=== PATIENT | female | born 1975 | race Caucasian/White ===

== ENCOUNTER 2017-10-27 14:24 | Emergency (ER) | payer OTHER ==
[~2017-10-27] VITALS: Ht 165.1 cm; Wt 72.6 kg
[2017-10-27 14:34] VITALS: Ht 165.1 cm; Wt 72.6 kg
[2017-10-27 15:01] LABS: BASOPHIL % 0.1 % (0-2); PLATELET COUNT 147 x10^3mcL (130-400)
[2017-10-27 15:11] LABS: CALCIUM 7.3 mg/dL (8.5-10.1); CARBON DIOXIDE 18.3 mmol/L (21-32); CHLORIDE SERUM 101 mmol/L (98-107); CREATININE SERUM 0.7 mg/dL (0.6-1.0); GFR1 > 60 mL/min; GLUCOSE SERUM 202 mg/dL (74-106); POTASSIUM SERUM 3.5 mmol/L (3.5-5.1); SODIUM SERUM 137 mmol/L (136-145)
[2017-10-27 15:24] LABS: ALKALINE PHOSPHATASE 295 U/L (46-116); ALT/SGPT 66 U/L (14-59); AST/SGOT 82 U/L (15-37); BILIRUBIN TOTAL 0.38 mg/dL (0.20-1.00); CHOLESTEROL 151 mg/dL (<200); LIPASE 67 IU/L (73-393); MAGNESIUM 1.5 mg/dL (1.8-2.4); T4(THYROXINE) 6.2 ug/dL (4.7-13.3); TOTAL PROTEIN, SERUM 7.7 g/dL (6.4-8.2)
[2017-10-27 15:26] LABS: ALBUMIN 3.1 g/dL (3.4-5.0); AMYLASE 19 U/L (25-115)
[2017-10-27 17:33] LABS: UA SPECIFIC GRAVITY >=1.030 (1.005-1.035); microscopic required? YES; urine erythrocyte TRACE (NEGATIVE)
[2017-10-27 17:42] LABS: AMPHETAMINE QUAL UR NONE DETECTED (See below)
[2017-10-27 19:04] VITALS: BP 121/78
== END 2017-10-27 19:04 | disposition home or self-care (01) ==
LOC: ED 14:24 → EDBD 14:24 → ED 19:04
PROVIDERS: Emergency Medicine
DX: G93.41 Metabolic encephalopathy (principal); F10.129 Alcohol abuse with intoxication, unspecified; Z90.49 Acquired absence of other specified parts of digestive tract; Z88.0 Allergy status to penicillin
CPT/HCPCS: 36600; G0480; J2060; J3411; J3475; J3490; J7030; Q0092

== ENCOUNTER 2018-06-11 03:29 | Emergency (ER) | payer OTHER ==
[~2018-06-11] VITALS: Ht 167.6 cm; Wt 63.5 kg
[2018-06-11 03:35] VITALS: Ht 167.6 cm; Wt 63.5 kg
[2018-06-11 04:54] LABS: BASOPHIL % 0.5 % (0-2); PLATELET COUNT 223 x10^3mcL (130-400)
[2018-06-11 04:55] LABS: RED CELL DISTRIBUTION WIDTH 16.1 % (11.5-14.5)
[2018-06-11 05:32] LABS: CALCIUM 8.2 mg/dL (8.5-10.1); CARBON DIOXIDE 25.2 mmol/L (21-32); CHLORIDE SERUM 101 mmol/L (98-107); GFR1 > 60 mL/min; GLUCOSE SERUM 271 mg/dL (74-106); POTASSIUM SERUM 3.6 mmol/L (3.5-5.1); SODIUM SERUM 138 mmol/L (136-145)
[2018-06-11 05:38] LABS: ALBUMIN 3.5 g/dL (3.4-5.0); ALKALINE PHOSPHATASE 179 U/L (46-116); ALT/SGPT 59 U/L (14-59); AST/SGOT 50 U/L (15-37); BILIRUBIN TOTAL 0.41 mg/dL (0.20-1.00); LIPASE 35 IU/L (73-393); TOTAL PROTEIN, SERUM 7.9 g/dL (6.4-8.2)
[2018-06-11 05:47] LABS: AMYLASE 22 U/L (25-115)
[2018-06-11 07:24] VITALS: BP 88/66
== END 2018-06-11 07:24 | disposition home or self-care (01) ==
LOC: ED 03:29
PROVIDERS: Emergency Medicine
DX: F10.129 Alcohol abuse with intoxication, unspecified (principal); T51.91XA Toxic effect of unspecified alcohol, accidental (unintentional), initial encounter; R11.10 Vomiting, unspecified; Z88.0 Allergy status to penicillin; Y92.89 Other specified places as the place of occurrence of the external cause
CPT/HCPCS: 82962; C9113; G0480; J2060; J2405; J7030